=== PATIENT | female | born 1970 | race Caucasian/White ===

== ENCOUNTER 2017-02-08 14:31 | Outpatient (CLI) | payer OTHER ==
[2017-02-08] MEDS ORDERED: NS IV 1000 ML 1,000 ML IV SCH (15:00)
[2017-02-08] MEDS ORDERED: ONDANSETRON 4 MG/2 ML (SDV) Z0FRAN IVP ONE (15:00)
[2017-02-08 15:10] VITALS: BP 94/58
[2017-02-08 15:27] LABS: BASOPHILS % (AUTO) 0 % (0-10); EOSINOPHILS % (AUTO) 0 % (0-10); LYMPHOCYTES % (AUTO) 10 % (12-44); MEAN CORPUSCULAR HEMOGLOBIN 30 PG (25-34); MEAN CORPUSCULAR HGB CONC 34 G/DL (32-36); MEAN CORPUSCULAR VOLUME 87 FL (80-99); MEAN PLATELET VOLUME 10.4 FL (7.4-10.4); MONOCYTES # (AUTO) 0.4 X 10^3 (0.0-1.0); MONOCYTES % (AUTO) 4 % (0-12); NEUTROPHILS # (AUTO) 8.3 X 10^3 (1.8-7.8); NEUTROPHILS % (AUTO) 86 % (42-75); PLATELET COUNT 260 10^3/uL (130-400); RED BLOOD COUNT 4.74 10^6/uL (4.35-5.85); RED CELL DISTRIBUTION WIDTH 12.2 % (10.0-14.5); WHITE BLOOD COUNT 9.7 10^3/uL (4.3-11.0)
[2017-02-08 15:45] LABS: ALANINE AMINOTRANSFERASE 15 U/L (0-55); ALBUMIN 4.3 G/DL (3.2-4.5); AMYLASE 58 U/L (25-125); ANION GAP 8 MMOL/L (5-14); ASPARTATE AMINO TRANSFERASE 21 U/L (5-34); BILIRUBIN,TOTAL 0.4 MG/DL (0.1-1.0); BLOOD UREA NITROGEN 21 MG/DL (7-18); BUN/CREATININE RATIO 24; CARBON DIOXIDE 25 MMOL/L (21-32); CHLORIDE 109 MMOL/L (98-107); CREATININE SERUM 0.86 MG/DL (0.60-1.30); GFR ESTIMATED > 60; GLUCOSE 112 MG/DL (70-105); LIPASE 58 U/L (8-78); POTASSIUM 3.8 MMOL/L (3.6-5.0); SODIUM 142 MMOL/L (135-145); TOTAL PROTEIN 6.7 G/DL (6.4-8.2)
== END 2017-02-08 16:50 | disposition home or self-care (01) ==
LOC: SDC 14:31 → ICU 14:31 → SDC 16:45
PROVIDERS: ATTEND Nurse Practitioner
DX: E86.0 Dehydration (principal); R11.2 Nausea with vomiting, unspecified; R19.7 Diarrhea, unspecified; I95.9 Hypotension, unspecified
CPT/HCPCS: 36415; 80053; 82150; 83690; 85025

== ENCOUNTER 2019-04-10 14:26 | Outpatient (CLI) | payer BC ==
[~2019-04-10] VITALS: Ht 157.5 cm; Wt 71.7 kg
[2019-04-10] MEDS ORDERED: ONDANSETRON 4 MG/2 ML (SDV) Z0FRAN IV ONE (14:45)
[2019-04-10] MEDS: NS IV 1000 ML 1,000 ML IV SCH ×2 (14:51→15:55)
[2019-04-10 17:00] VITALS: BP 132/80
== END 2019-04-10 17:00 | disposition home or self-care (01) ==
LOC: SDC 14:26
PROVIDERS: ATTEND Nurse Practitioner Family
DX: E86.0 Dehydration (principal); R11.2 Nausea with vomiting, unspecified
CPT/HCPCS: 96374

== ENCOUNTER 2022-10-09 11:01 | Emergency (ER) | payer BC ==
[~2022-10-09] VITALS: Ht 158 cm; Wt 66.8 kg
[2022-10-09] MEDS ORDERED: RT-ALBUTEROL HFA 8.5 GM INHALER IH PRN (11:45)
--- NOTE | 2022-10-09 12:40 | Diagnostic Imaging Report ---
INDICATION: Shortness of breath. No comparison. FINDINGS: Upright portable chest. Mild increased interstitial markings are noted within both lungs. No evidence of pulmonary edema. The heart is not enlarged. No pneumothorax or pleural effusion. No bony abnormalities. IMPRESSION: Mild bilateral interstitial infiltrates are noted. This may be secondary to inflammatory changes or chronic. Comparison at this time. No evidence of pulmonary edema. Dictated by: Dictated on workstation # [id number]
--- NOTE | 2022-10-09 12:44 | ED General ---
General Chief Complaint: COVID19 Suspect/Confirmed Stated Complaint: WEAKNESS | COVID Nursing Triage Note: pt to rm 10 by cr co ems with cc of covid + and weakness for a couple days. pt just tested + today, states she can't catch her breath, 97-100% on room air, lt lung hurts, muscle aches, fever yesterday Source of Information: Patient Exam Limitations: No Limitations History of Present Illness Date Seen by Provider: Oct 09, 2022 Time Seen by Provider: 11:05 Initial Comments Patient is a 52-year-old female who presents to the emergency department via EMS with weakness and shortness of breath for a few days. She also endorses some muscle aches intermittently. She states she was febrile yesterday. She tested positive for COVID today at the drive-through testing site. She was noticed to be slumped over in the car and not as responsive as normal which led to EMS being called. EMS state patient was stable in route. Vital signs are reas suring. Patient was not hypoxic per EMS and did not require any oxygen. They stated she was generally weak and had difficulty getting onto the stretcher. Patient states she has some chest tightness but denies any chest pain. Patient received 3 COVID vaccines. She states she has a history of sarcoidosis. Allergies and Home Medications Allergies Coded Allergies: No Known Drug Allergies (Unverified , 02/08/17) Patient Home Medication List Home Medication List Reviewed: Yes Albuterol Sulfate (Ventolin Hfa) 1 Puff Puff, 2-4 PUFF INH Q4H PRN for WHEEZING Prescribed by: Alfredito Pereyra on 10/09/22 1259 Nirmatrelvir/Ritonavir (Paxlovid 300-100 mg Pack (Eua)) 300 Mg (150 Mg X 2)-100 Mg Tab.ds.pk, 1 EACH PO BID Prescribed by: Alfredito Pereyra on 10/09/22 1259 Review of Systems Review of Systems Constitutional: see HPI, fever, malaise EENTM: no symptoms reported Respiratory: see HPI, cough, short of breath Cardiovascular: no symptoms reported Gastrointestinal: no symptoms reported Genitourinary: no symptoms reported Musculoskeletal: see HPI, muscle pain Skin: no symptoms reported Physical Exam Vital Signs Vital Signs - First Documented 10/09/22 11:03 Temp 37.3 Pulse 81 Resp 22 B/P (MAP) 118/70 (86) Pulse Ox 100 O2 Delivery Room Air Capillary Refill : Less Than 3 Seconds Height, Weight, BMI Height: 5'2.00" Weight: 158lbs. 0.0oz. [id number]; 26.00 BMI Method: General Appearance: No Apparent Distress, WD/WN HEENT: PERRL/EOMI, TMs Normal, Normal ENT Inspection, Pharynx Normal Neck: Full Range of Motion, Normal Inspection, Non Tender, Supple Respiratory: Chest Non Tender, Lungs Clear, Normal Breath Sounds, No Accessory Muscle Use, No Respiratory Distress Cardiovascular: Regular Rate, Rhythm Gastrointestinal: Normal Bowel Sounds, Non Tender, Soft Neurologic/Psychiatric: Alert, Oriented x3, No Motor/Sensory Deficits, Normal Mood/Affect Skin: Normal Color, Warm/Dry Progress/Results/Core Measures Suspected Sepsis SIRS Temperature: Pulse: 81 Respiratory Rate: 22 Blood Pressure 118 /70 Mean: 86 Results/Orders My Orders Orders - ALFREDITO PEREYRA APRN Chest 1 View, Ap/Pa Only (10/09/22 11:40) Albuterol Inhaler (Albuterol) (10/09/22 11:45) Medications Given in ED Current Medications Medications Dose Ordered Sig/Dee Dee Route Start Time Stop Time Status Last Admin Dose Admin Albuterol Sulfate 4 PUFFS ONCE PRN IH 10/09/22 11:45 10/09/22 13:10 DC 10/09/22 11:56 8.5 GM Vital Signs/I&O 10/09/22 10/09/22 10/09/22 11:03 11:28 13:07 Temp 37.3 Pulse 81 81 Resp 22 22 B/P (MAP) 118/70 (86) 107/66 Pulse Ox 100 100 O2 Delivery Room Air Room Air Room Air Capillary Refill : Less Than 3 Seconds Blood Pressure Mean: 86 Progress Note : Progress Note Patient is nontoxic and well-hydrated on exam. No adventitious lung sounds or increased work of breathing noted. Vital signs are reassuring without hypoxia or tachypnea. Patient seems to be having difficulty speaking and is talking very quietly. She states this is due to her subjective shortness of air. Chest x-ray was obtained that was acutely negative. She was given 4 puffs of al buterol which she states markedly improved her symptoms. I confirmed that she did test positive for COVID at the outside clinic by calling her PCP. She will be placed on Paxlovid. I checked interactions between Paxlovid and her current medications as provided by her. There appears to be no significant interaction. She does not meet criteria for admission at this time as she is not hypoxic. No indication for any further diagnostic testing. Discussed supportive care and anticipatory guidance. Follow-up with PCP. Return precautions for urgent symptomology discussed. Patient verbalized understanding. Departure Impression Primary Impression: COVID-19 Disposition: 01 HOME, SELF-CARE Condition: Stable Departure-Patient Inst. Decision time for Depature: 12:55 Referrals: JAG REHMAN DO (PCP) Primary Care Physician Patient Instructions: COVID-19 Home Care/Discharge Scripts Albuterol Sulfate (VENTOLIN HFA) 1 Puff Puff 2-4 PUFF INH Q4H PRN for WHEEZING for 10 Days, #1 EA 0 Refills 1 PUFF = 90 MCG Prov: ALFREDITO PEREYRA APRN 10/09/22 Nirmatrelvir/Ritonavir (Paxlovid 300-100 mg Pack (Eua)) 300 Mg (150 Mg X 2)-100 Mg Tab.ds.pk 1 EACH PO BID for 5 Days, #1 PKG Prov: ALFREDITO PEREYRA APRN 10/09/22 ALFREDITO PEREYRA APRN Oct 09, 2022 12:44
[2022-10-09] MEDS ORDERED: RT-ALBUINH INH (12:59)
[2022-10-09] MEDS ORDERED: NIRM1TAB PO (12:59)
[2022-10-09 13:07] VITALS: BP 107/66
== END 2022-10-09 13:07 | disposition home or self-care (01) ==
LOC: EDUNIT# 11:01 → ER 11:02
DX: U07.1 COVID-19 (principal); Z73.0 Burn-out
CPT/HCPCS: 71045